=== PATIENT | male | born 1985 | race Caucasian/White ===

== ENCOUNTER 2017-11-24 10:22 | Emergency (ER) | payer SELFPAY ==
[2017-11-24 10:38] VITALS: BP 137/68; TEMP 97.4; O2SAT 97
--- NOTE | 2017-11-24 10:48 | ED.PDOC ---
History of Present Illness - General Chief Complaint: Dental/Mouth Stated Complaint: right upper jaw pain Time Seen by Provider: 11/24/17 10:42 Source: patient Exam Limitations: no limitations - History of Present Illness Initial Comments: the patient is a 32-year-old male presenting to emergency room secondary to right maxillary dental pain extending into his right maxillary sinus. The patient has numerous dental caries but he has been having some inflammation in this area for last 3 weeks. It is worse with eating. There is minimal swelling associated with it but the pain is fairly obvious. No fevers. We will sinus drainage. No obvious abscess that I can see that requires drainage.the patient apparently does not have a true Tylenol allergy. It is simply to codeine and Tylenol No. 3 that he cannot take. Timing/Duration: unsure Severity: moderate Improving Factors: nothing Worsening Factors: eating Associated Symptoms: denies symptoms Allergies/Adverse Reactions: Allergies Acetaminophen [From Tylenol with Codeine #3] Allergy (Verified 11/24/17 10:41) Codeine [From Tylenol with Codeine #3] Allergy (Verified 11/24/17 10:41) Home Medications: Ambulatory Orders Ghpzuwvxdxfon-Zigr-Ogdvywzzex [Fioricet] 1 ea PO Q8H PRN #30 tab 11/24/17 Amoxicillin & Pot Clavulanate [Augmentin Tab] 875 mg PO BID #20 tab 11/24/17 Review of Systems - Review of Systems Constitutional: States: malaise EENTM: States: see HPI Respiratory: States: no symptoms reported Cardiology: States: no symptoms reported Gastrointestinal/Abdominal: States: no symptoms reported Genitourinary: States: no symptoms reported Musculoskeletal: States: no symptoms reported Skin: States: no symptoms reported Neurological: States: headache Endocrine: States: no symptoms reported Hematologic/Lymphatic: States: no symptoms reported Past Medical History (General) - Patient Medical History Hx Asthma: No Family Medical History - Family History Mother Family History: No Known Physical Exam - Physical Exam General Appearance: Alert, Comfortable, No apparent distress Eye Exam: bilateral normal Ears, Nose, Throat: hearing grossly normal, other - poor dentition with multiple dental caries and fractured teeth. He does have tenderness to palpation over the right maxillary sinus. No obvious abscess noted. 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 The patient is going to be placed on Augmentin for targeting of this infection. He'll also be written for some Fioricet for pain control as needed. Fioricet does contain Tylenol but does not contain codeine. He reports that he is not allergic to Tylenol. Needs to keep himself well-hydrated. Aleve or ibuprofen can be taken additionally for pain control. He does need to get set up with a dentist for tooth extraction to prevent further issues. ER warnings were given for any significant worsening. Departure - Departure Clinical Impression: Dental caries Maxillary sinusitis, acute Qualifiers: Recurrence: non-recurrent Qualified Code(s): J01.00 - Acute maxillary sinusitis , unspecified Disposition: Discharge to Home or Self Care Condition: Fair Departure Forms: ED Discharge - Pt. Copy, Patient Portal Self Enrollment Diet: regular diet Activity: increase activity as tolerated Prescriptions: Bjazyqtdzjoir-Zxwh-Dpitcfuokz [Fioricet] 1 ea PO Q8H PRN #30 tab PRN Reason: Pain Amoxicillin & Pot Clavulanate [Augmentin Tab] 875 mg PO BID #20 tab Home Medications: Ambulatory Orders Dsvmvthehqdzy-Kdnn-Ycflwmqraj [Fioricet] 1 ea PO Q8H PRN #30 tab 11/24/17 Amoxicillin & Pot Clavulanate [Augmentin Tab] 875 mg PO BID #20 tab 11/24/17 Additional Instructions: the patient is a 32-year-old male presenting to the emergency room with dental caries and associated infection in the right maxillary sinus. The patient is going to be placed on Augmentin for targeting of this infection. He'll also be written for some Fioricet for pain control as needed. Fioricet does contain Tylenol but does not contain codeine. He reports that he is not allergic to Tylenol. Needs to keep himself well-hydrated. Aleve or ibuprofen can be taken additionally for pain control. He does need to get set up with a dentist for tooth extraction to prevent further issues. ER warnings were given for any significant worsening.
== END 2017-11-24 10:59 | disposition home or self-care (01) ==
LOC: ER 10:22
DX: K02.9 Dental caries, unspecified (principal); J01.00 Acute maxillary sinusitis, unspecified

== ENCOUNTER 2018-08-30 03:11 | Emergency (ER) | payer SELFPAY ==
--- NOTE | 2018-08-30 03:24 | ED.PDOC ---
History of Present Illness - General Chief Complaint: Dental/Mouth Stated Complaint: tootache Time Seen by Provider: 08/30/18 03:21 - History of Present Illness Initial Comments: THE PATIENT PRESENTS TO THE ED WITH COMPLAINT OF TOOTHACHE THAT HAS BEEN PRESENT FOR THE PAST 3 WEEKS. THE PATIENT STATES THAT THE PAIN IS THROBBING IN NATURE. THE PATIENT STATES THAT THE PAIN CURRENTLY RATES A 7 OUT OF 10 AND THAT HE GETS SOME RELIEF WITH [id number] MEDICATIONS WHICH HE STATES IS MOTRIN. THE PATIENT STATES HE HAS NO FEVER OR CHILLS W/ THIS ISSUE BUT DOES ENDORSE THAT IT IS PAINFUL TO EAT AND DRINK DUE TO THIS. THE PATIENT STATES THAT HE HAS BEEN ADVISED IN THE PAST THAT HE NEEDS TO SEE DENTISTRY FOR EXTRACTION OF HIS MOLARS BUT DUE TO WORKING HE HAS BEEN UNABLE TO GO TO THE DENTIST TO HAVE THIS ACCOMPLISHED. Allergies/Adverse Reactions: Allergies Codeine [From Tylenol with Codeine #3] Allergy (Verified 08/30/18 03:24) Home Medications: Ambulatory Orders Wsiriplltbldj-Ppmu-Nbiuhmlrfq [Fioricet] 1 ea PO Q8H PRN #30 tab 11/24/17 Amoxicillin & Pot Clavulanate [Augmentin Tab] 875 mg PO BID #20 tab 11/24/17 Amoxicillin & Pot Clavulanate [Augmentin Tab] 875 mg PO BID #20 tab 08/30/18 Tramadol HCl [Ultram] 50 mg PO Q8HR #3 tab 08/30/18 Review of Systems - Review of Systems Review of Systems: 08/30/18 03:24 A 10 POINT REVIEW OF SYSTEMS WAS PERFORMED AT THE BEDSIDE AND IS NEGATIVE EXCEPT NOTED IN THE PATIENT'S HPI. Past Medical History (General) - Patient Medical History Hx Asthma: No Family Medical History - Family History Mother Family History: No Known Physical Exam - Physical Exam General Appearance: Well Developed, Well Hydrated Eye Exam: bilateral normal Ear Exam: bilateral ear: auricle normal, TM normal Nasal Exam: normal inspection Throat Exam: pharynx normal, dental tenderness, other - Poor dentition noted with inspection of the oropharynx. There multiple dental caries noted in the region of the patient's left upper molars. There is periodontal swelling noted. Neck: non-tender Cardiovascular/Respiratory: regular rate, rhythm Abdominal Exam: non-tender Neurologic: alert, oriented x 3 Skin Exam: normal color, warm/dry Progress - Progress Progress: 08/30/18 03:26 The patient's presentation is concerning for periodontal disease at this time. The patient will be placed on antibiotics as well as given pain control for this issue. Based on my exam I think that the patient is extremely unlikely to have emergent pathology such as Rtu's angina/RPA/UNDERWRITING SALES REPRESENTATIVE/epiglottitis at this time. The patient will be discharged home and advised to f/u with dentistry later today for further evaluation and care of his tooth issues. Departure - Departure Clinical Impression: Dental abscess, Chronic dental pain Disposition: Discharge to Home or Self Care Condition: Fair Departure Forms: ED Discharge - Pt. Copy, Patient Portal Self Enrollment Instructions: DI for Dental Pain, DI for Mouth Pain Diet: bland diet Referrals: MALI RAI DDS [Dentist] - 1-2 Days (PLEASE CALL AT 0900 TODAY TO ATTEMPT TO BE SEEN. AVOID SMOKING. RETURN TO THE ED IF ANY CONCERNS ARISE SUCH INCREASED PAIN,SWELLING, INABILITY TO EAT OR OTHER ISSUES ARISE.) Prescriptions: Tramadol HCl [Ultram] 50 mg PO Q8HR #3 tab Amoxicillin & Pot Clavulanate [Augmentin Tab] 875 mg PO BID #20 tab Home Medications: Ambulatory Orders Btpsmtpezfwxw-Spra-Zgstpnmycq [Fioricet] 1 ea PO Q8H PRN #30 tab 11/24/17 Amoxicillin & Pot Clavulanate [Augmentin Tab] 875 mg PO BID #20 tab 11/24/17 Amoxicillin & Pot Clavulanate [Augmentin Tab] 875 mg PO BID #20 tab 08/30/18 Tramadol HCl [Ultram] 50 mg PO Q8HR #3 tab 08/30/18
[2018-08-30 03:30] VITALS: BP 146/92; TEMP 97.8; O2SAT 99
== END 2018-08-30 03:41 | disposition home or self-care (01) ==
LOC: ER 03:11
DX: K04.7 Periapical abscess without sinus (principal); K02.9 Dental caries, unspecified; Z88.6 Allergy status to analgesic agent

== ENCOUNTER 2018-10-03 03:50 | Emergency (ER) | payer SELFPAY ==
[2018-10-03 04:08] VITALS: O2SAT 98
[2018-10-03] MEDS ORDERED: PENICILLIN BENZATHINE 1.2 MU 1.2 MU/2 ML SYG IM ONE (04:32)
[2018-10-03] MEDS ORDERED: traMADol HCL 50 MG TAB PO ONE (04:32)
[2018-10-03] MEDS ORDERED: traMADol HCL 50 MG (ER DISP) # 6 TABS PO ONE (04:32)
--- NOTE | 2018-10-03 04:35 | ED.PDOC ---
History of Present Illness - General Chief Complaint: Dental/Mouth Stated Complaint: toothache Time Seen by Provider: 10/03/18 04:31 Source: patient Exam Limitations: no limitations - History of Present Illness Initial Comments: TOOTHACHE SINCE 11 PM. HAS HAD MULTIPLE EPISODES OF DENTAL ABSCESS IN THE PAST. DENIES ANY FEVER. Timing/Duration: abrupt EENT Location: dental Prearrival Treatment: no prearrival treatment Improving Factors: nothing Worsening Factors: cold therapy Associated Symptoms: denies symptoms Allergies/Adverse Reactions: Allergies Codeine [From Tylenol with Codeine #3] Allergy (Verified 08/30/18 03:24) Home Medications: Ambulatory Orders Clindamycin HCl 300 mg PO Q6HRS #40 cap 10/03/18 Tramadol HCl 50 mg PO Q6HRS #16 tab 10/03/18 Review of Systems - Review of Systems Constitutional: States: other EENTM: States: mouth pain Respiratory: States: no symptoms reported Cardiology: States: no symptoms reported, chest pain Genitourinary: States: no symptoms reported Past Medical History (General) - Patient Medical History Hx Seizures: No Hx Stroke: No Hx Dementia: No Hx Asthma: No Hx of COPD: No Hx Cardiac Disorders: No Hx Congestive Heart Failure: No Hx Pacemaker: No Hx Hypertension: No Hx Thyroid Disease: No Hx Diabetes: No Hx Gastroesophageal Reflux: No Hx Renal Disease: No Hx Cancer: No Hx of HIV: No Hx Hepatitis C: No Hx MRSA: No Surgical History: no surgical history - Vaccination History Hx Tetanus, Diphtheria Vaccination: Yes Hx Influenza Vaccination: No Hx Pneumococcal Vaccination: No - Social History Hx Tobacco Use: Yes Hx Chewing Tobacco Use: No Hx Alcohol Use: No Hx Substance Use: No Hx Substance Use Treatment: No Hx Depression: No Hx Physical Abuse: No Hx Emotional Abuse: No Hx Suspected Abuse: No - Triage Comment ED Triage Comment: Pain to upper right side tooth Family Medical History - Family History Mother Family History: No Known Physical Exam - Physical Exam General Appearance: Alert, Ill Appearing Eye Exam: bilateral normal Nasal Exam: normal inspection Throat Exam: other - RIGHT UPPER CANINE WITH LARGE CAVITY, GUM IS ALSO SWOLLEN Neck: non-tender, full range of motion Cardiovascular/Respiratory: regular rate, rhythm, no M/R/G, normal peripheral pulses, no JVD Abdominal Exam: no organomegaly Neurologic: oriented x 3 Skin Exam: normal color Departure - Departure Clinical Impression: Compound dental caries Time of Disposition: 04:36 Disposition: Discharge to Home or Self Care Condition: Good Departure Forms: ED Discharge - Pt. Copy, Patient Portal Self Enrollment Diet: resume usual diet Prescriptions: Clindamycin HCl 300 mg PO Q6HRS #40 cap Tramadol HCl 50 mg PO Q6HRS #16 tab Home Medications: Ambulatory Orders Clindamycin HCl 300 mg PO Q6HRS #40 cap 10/03/18 Tramadol HCl 50 mg PO Q6HRS #16 tab 10/03/18 Additional Instructions: FOLLOW UP WITH DENTIST
[2018-10-03 05:03] VITALS: BP 128/71; TEMP 97.2
== END 2018-10-03 05:02 | disposition home or self-care (01) ==
LOC: ER 03:50
DX: K02.9 Dental caries, unspecified (principal); Z87.891 Personal history of nicotine dependence